=== PATIENT | female | born 1985 | race Caucasian/White ===

== ENCOUNTER → 2020-06-26 16:14 | Outpatient (BNVA) | payer MEDICAID, SELFPAY | PROVIDERS: Family Provider Nurse Practitioner; PCP Nurse Practitioner; Visit Provider Nurse Practitioner Family | DX: F41.9 Anxiety disorder, unspecified (principal); R07.9 Chest pain, unspecified; J01.00 Acute maxillary sinusitis, unspecified; E55.9 Vitamin D deficiency, unspecified; E78.2 Mixed hyperlipidemia | CPT/HCPCS: 80053; 80061; 82306; 82607; 83735; 84443; 85025 ==